=== PATIENT | female | born 1995 | race Caucasian/White ===

== ENCOUNTER → 2017-03-17 | Outpatient (REF) | LOC: WSOH 10:26 | DX: Z02.1 Encounter for pre-employment examination (principal) ==

== ENCOUNTER 2017-03-21 09:53 | Emergency (ER) | payer SELFPAY ==
[~2017-03-21] VITALS: Ht 149.9 cm; Wt 64.5 kg
[2017-03-21 09:55] VITALS: BP 118/56; PULSE 80; TEMP 98.8
== END 2017-03-21 10:30 | disposition left against medical advice (07) ==
LOC: COL.ER 09:53
DX: R53.81 Other malaise (principal); J02.9 Acute pharyngitis, unspecified; R09.89 Other specified symptoms and signs involving the circulatory and respiratory systems

== ENCOUNTER → 2017-03-24 | Outpatient (REF) | LOC: WSOH 08:23 | DX: Z02.1 Encounter for pre-employment examination (principal) ==

== ENCOUNTER → 2017-03-27 | Outpatient (REF) | LOC: WSOH 09:15 | DX: Z02.89 Encounter for other administrative examinations (principal) ==

== ENCOUNTER → 2017-03-27 | Outpatient (REF) | LOC: WSOH 09:07 | DX: Z23 Encounter for immunization (principal) ==

== ENCOUNTER → 2017-04-11 | Outpatient (REF) | LOC: WSOH 14:04 | DX: Z11.1 Encounter for screening for respiratory tuberculosis (principal) ==

== ENCOUNTER → 2017-04-27 | Outpatient (REF) | LOC: WSOH 14:28 | DX: Z02.89 Encounter for other administrative examinations (principal) ==

== ENCOUNTER 2019-10-15 21:49 | Emergency (ER) | payer SELFPAY ==
[~2019-10-15] VITALS: Ht 152.4 cm; Wt 63.6 kg
[2019-10-15 22:04] VITALS: BP 118/71; PULSE 87; TEMP 97.8
== END 2019-10-15 23:09 | disposition left against medical advice (07) ==
LOC: COL.ER 21:49
DX: R05 Cough (principal)